=== PATIENT | female | born 1990 ===

== ENCOUNTER 2016-12-30 11:38 | Emergency (ER) | payer BC ==
[2016-12-30 12:24] VITALS: BP 115/74; PULSE 85; RESP 19; TEMP 98.7; O2SAT 99
[2016-12-30] MEDS ORDERED: Sodium Chloride 0.9% 1,000 ML IV STA (12:42)
[2016-12-30 13:08] LABS: BASO # 0.01 K/mm3 (0.0-2.0); BASO % 0.2 % (0.0-3.0); EOS # 0.1 (0.0-0.7); EOS % 1.1 % (1.5-5.0); GRAN % 64.6 % (50.0-68.0); HEMOGLOBIN 11.1 gm/dL (12.0-16.0); LYMPH # 1.7 (1.2-3.4); MEAN CELL VOLUME 82.9 fL (80.0-105.0); MEAN CORPUSCULAR HEMOGLOBIN 26.8 pg (25.0-35.0); MEAN CORPUSCULAR HGB CONC 32.4 g/dl (31.0-37.0); MEAN PLATELET VOLUME 11.4 fl (7.0-11.0); MONO # 0.4 (0.1-0.6); MONO % 7.1 % (1.0-6.0); PLATELET COUNT 265 10^3/uL (120.0-450.0); RBC 4.14 10^6/uL (3.5-6.1); RED CELL DISTRIBUTION WIDTH 13.8 % (11.5-14.5); WHITE BLOOD COUNT 6.2 10^3/ul (4.5-11.0)
--- NOTE | 2016-12-30 13:14 | ED PDOC ---
Arrival/HPI - General Chief Complaint: Headache Time Seen by Provider: 12/30/16 12:29 Historian: Patient - History of Present Illness Narrative History of Present Illness (Text): 12/30/16 12:48 Alma Rosa Logan is a 26 year old female, with no significant past medical history, presents to the emergency department complaining of intermittent headache since yesterday. Patient woke up today morning with lightheadedness, tremors, and abdominal pain. States her last bowel movement was today morning with some constipation. Denies any nausea, vomiting, or diarrhea. Denies fever, chills, chest pain, shortness of breath, urinary symptoms, or any other complaints at this time. Time/Duration: Other (yesterday ) Symptom Onset: Gradual Severity Level: Mild Activities at Onset: Light Context: Home Past Medical History - Provider Review Nursing Documentation Reviewed: Yes - Infectious Disease Hx of Infectious Diseases: None - Reproductive Menopause: No - Psychiatric Hx Substance Use: No - Surgical History Hx Section: Yes - Anesthesia Hx Anesthesia: Yes Hx Anesthesia Reactions: No Hx Malignant Hyperthermia: No Family/Social History - Physician Review Nursing Documentation Reviewed: Yes Family/Social History: No Known Family HX Smoking Status: Never Smoked Hx Alcohol Use: No Hx Substance Use: No Allergies/Home Meds Allergies/Adverse Reactions: Allergies No Known Allergies Allergy (Verified 12/30/16 12:24) Review of Systems - Physician Review All systems were reviewed & negative as marked: Yes - Review of Systems Constitutional: Other (tremors ). absent: Fatigue, Fevers Respiratory: absent: SOB, Cough, Sputum Cardiovascular: absent: Chest Pain, Palpitations Gastrointestinal: Abdominal Pain, Constipation. absent: Diarrhea, Nausea, Vomiting, Appetite Changes Genitourinary Female: Normal. absent: Dysuria, Frequency Neurological: Headache, Dizziness. absent: Focal Weakness Psychiatric: Normal Physical Exam Vital Signs Reviewed: Yes Vital Signs Temp Pulse Resp BP Pulse Ox 12/30/16 12:18 98.7 F 85 19 115/74 99 Temperature: Afebrile Blood Pressure: Normal Pulse: Regular Respiratory Rate: Normal Appearance: Positive for: Well-Appearing, Non-Toxic, Comfortable Pain Distress: None Mental Status: Positive for: Alert and Oriented X 3 - Systems Exam Head: Present: Atraumatic, Normocephalic Pupils: Present: PERRL Extroacular Muscles: Present: EOMI Conjunctiva: Present: Normal Mouth: Present: Moist Mucous Membranes Respiratory/Chest: Present: Clear to Auscultation, Good Air Exchange. No: Respiratory Distress, Accessory Muscle Use Cardiovascular: Present: Regular Rate and Rhythm, Normal S1, S2. No: Murmurs Abdomen: Present: Tenderness (Epigastric tenderness ), Normal Bowel Sounds. No : Distention, Peritoneal Signs, Rebound, Guarding Upper Extremity: Present: Normal Inspection. No: Cyanosis, Edema Lower Extremity: Present: Normal Inspection. No: Edema Neurological: Present: GCS=15, CN II-XII Intact, Speech Normal, Motor Func Grossly Intact, Normal Sensory Function Skin: Present: Warm, Dry, Normal Color. No: Rashes Psychiatric: Present: Alert, Oriented x 3, Normal Insight, Normal Concentration Medical Decision Making ED Course and Treatment: 12/30/16 13:17 Impression: A 26 year old female who presents to the emergency department complaining of dizziness, tremors, lightheadedness and abdominal pain. Differential Diagnosis included but are not limited to: Vertigo vs. Headache, Abdominal Pain Plan: -- Labs -- Tylenol -- Pepecid -- Reglabn -- IVF -- Reassess and disposition Progress Notes: 12/30/16 14:43 Patients's labs normal. On reevaluation, abdomen is soft and not tender. No distended. Patient no longer feels lightheaded or dizzy. Her abdominal pain and headache has resolved. Patient walking without any issues or ataxia. Boyfriend will take her home. She will f/u with her pmd or Dr. Wang. - Lab Interpretations Lab Results: 12/30/16 13:00 12/30/16 13:00 Lab Results 12/30/16 13:00: Sodium 141, Potassium 4.2, Chloride 107, Carbon Dioxide 22, Anion Gap 16, BUN 12, Creatinine 0.6, Est GFR ( Amer) > 60, Est GFR (Non- Af Amer) > 60, Random Glucose 88, Calcium 9.3, Total Bilirubin 1.0, AST 25, ALT 24, Alkaline Phosphatase 68, Total Protein 8.0, Albumin 4.5, Globulin 3.5, Albumin/Globulin Ratio 1.3, Lipase 81 12/30/16 13:00: WBC 6.2, RBC 4.14, Hgb 11.1 L, Hct 34.3 L, MCV 82.9, MCH 26.8, MCHC 32.4, RDW 13.8, Plt Count 265, MPV 11.4 H, Gran % 64.6, Lymph % (Auto) 27.0 , Richardson % (Auto) 7.1 H, Eos % (Auto) 1.1 L, Baso % (Auto) 0.2, Gran # 4.00, Lymph # 1.7, Richardson # 0.4, Eos # 0.1, Baso # 0.01 I have reviewed the lab results: Yes - Medication Orders Current Medication Orders: Discontinued Medications Acetaminophen (Tylenol 325mg Tab) 975 mg PO STAT STA Stop: 12/30/16 12:42 Last Admin: 12/30/16 13:09 Dose: 975 mg Famotidine (Pepcid) 20 mg IVP STAT STA Stop: 12/30/16 12:43 Last Admin: 12/30/16 13:09 Dose: 20 mg Sodium Chloride (Sodium Chloride 0.9%) 1,000 mls @ 1,000 mls/hr IV .Q1H STA Stop: 12/30/16 13:41 Last Admin: 12/30/16 12:56 Dose: 1,000 mls/hr Metoclopramide HCl (Reglan) 10 mg IVP STAT STA Stop: 12/30/16 12:42 Last Admin: 12/30/16 13:09 Dose: 10 mg - Scribe Statement The provider has reviewed the documentation as recorded by the Jenna Martínez Provider Attestation: Provider Scribe Attestation: All medical record entries made by the Jenna were at my direction and personally dictated by me. I have reviewed the chart and agree that the record accurately reflects my personal performance of the history, physical exam, medical decision making, and the department course for this patient. I have also personally directed, reviewed, and agree with the discharge instructions and disposition. Disposition/Present on Arrival - Present on Arrival Any Indicators Present on Arrival: No History of DVT/PE: No History of Uncontrolled Diabetes: No Urinary Catheter: No History of Decub. Ulcer: No History Surgical Site Infection Following: None - Disposition Have Diagnosis and Disposition been Completed?: Yes Diagnosis: Headache, Abdominal pain Disposition: HOME/ ROUTINE Disposition Time: 14:31 Patient Plan: Discharge Condition: IMPROVED Discharge Instructions (ExitCare): Tension Headache (ED), Abdominal Pain (ED) Additional Instructions: Ms Castillo, thank you for letting us take care of you today. Your provider was Dr. Espinosa. You were treated for Headache, Abdominal Pain, Dehydration. The emergency medical care you received today was directed at your acute symptoms. If you were prescribed any medication, please fill it and take as directed. It may take several days for your symptoms to resolve. Return to the Emergency Department if your symptoms worsen, do not improve, or if you have any other problems. Please contact your doctor or call one of the physicians/clinics you have been referred to that are listed on the Patient Visit Information form that is included in your discharge packet. Bring any paperwork you were given at discharge with you along with any medications you are taking to your follow up visit. Our treatment cannot replace ongoing medical care by a primary care provider (PCP) outside of the emergency department. Thank you for allowing the [facility] team to be part of your care today. If you had an X-Ray or CT scan: A Radiologist will review the ED reading if any change in treatment is needed we will contact you. If you had a blood, urine, or wound culture: It will take several days for the results, if any change in treatment is needed we will contact you. If you had an STI test: It will take 48 hours for the results. Please call after 1 week if you have not heard back. Prescriptions: Acetaminophen [Tylenol 325mg tab] 650 mg PO Q4 #60 tab Ranitidine HCl [Zantac] 150 mg PO BID PRN #30 tablet PRN Reason: Pain, Mild (1-3) Referrals: Lenny Wang DO [Staff Provider] - Follow up with primary Forms: [employer] ([employer])
[2016-12-30 13:25] LABS: ALB/GLOB RATIO 1.3 (1.1-1.8); ALBUMIN 4.5 g/dL (3.0-4.8); ALT/SGPT 24 U/L (7-56); AST/SGOT 25 U/L (15-39); BLOOD UREA NITROGEN 12 mg/dL (7-21); CALCIUM 9.3 mg/dL (8.4-10.5); GFR AFRICAN-AMERICAN > 60; GFR NON-AFRICAN AMERICAN > 60; LIPASE 81 U/L (23-300)
== END 2016-12-30 14:31 | disposition home or self-care (01) ==
LOC: ED 11:38
DX: R51 Headache (principal); R10.9 Unspecified abdominal pain
CPT/HCPCS: 80053; 83690; 85025; 96374; 96375; 99285; J2765; J7040